=== PATIENT | male | born 1965 | race Caucasian/White ===

== ENCOUNTER 2023-01-17 11:58 | Emergency (ER) | payer OTHER, SELFPAY ==
[2023-01-17] VITALS (10 sets, daily range): BP systolic 148–170; BP diastolic 60–102; PULSE 54–64; RESP 15–26; TEMP 36.8; O2SAT 95–98; BMI 30.5
--- NOTE | 2023-01-17 12:35 | ECG_ITS ---
[facility] Test Date: 2023-01-17 Pat Name: Bernardo Bernal Department: Room: - Gender: Male Instructional Design Manager: : 1965 Requested By: IVAN SERVIN Order Number: [id number] Reading MD: IVAN SERVIN Measurements Intervals Mentcle Rate: 53 P: 49 MN: 198 QRS: 37 QRSD: 92 T: 18 QT: 452 QTc: 435 Interpretive Statements 1100 Sinus rhythm Non-Specific T wave inversion in III 9130 borderline ECG No previous ECG available for comparison Electronically Signed On 01-18-2023 5:29:31 EDT by IVAN SERVIN
--- NOTE | 2023-01-17 12:35 | XR_ITS ---
The [address] [address] Patient Name: BROCK GALVIN MRN: [id number] date: 1965 Sex: M Assigned Patient Location: ER Current Patient Location: ER Accession/Order Number: [id number] Exam Date: 01/17/2023 13:00 Report Date: 01/17/2023 13:55 At the request of: ALCIDES MONDRAGON Procedure: XR chest 1V EXAM: XR chest 1V HISTORY: chest pain, shortness of breath COMPARISON: None. TECHNIQUE: Chest X-ray AP, 1 view FINDINGS: Support devices: None. Lungs/pleura: No consolidation, effusion, or pneumothorax. Heart and mediastinum: Normal contours. Bones: No acute abnormality identified. XR/XR chest 1V Impression: No radiographic evidence of acute cardiopulmonary process. Electronically authenticated by: FERNANDO PULIDO Date: 01/17/2023 13:55
--- NOTE | 2023-01-17 12:36 | ED.GENADUL1 ---
HPI - General Adult General Chief complaint: Chest Pain Stated complaint: SHORTNESS OF BREATH/CHEST PAIN Time Seen by Provider: 01/17/23 12:08 Source: patient Mode of arrival: walk-in Limitations: no limitations History of Present Illness HPI narrative: 2 weeks ago the patient woke from sleep with left anterior chest tightness and difficulty breathing. He had a few more episodes over the next few days and then the sensation of shortness fo breath became more persistent. He still intermittently gets tightness in the chest. No fever, chills, cough or cold symptoms. No recent injury to the chest or neck or back. No GI or symptoms. No prior history of CAD, PE, asthma or COPD. Non-smoker. PMHx = HTN, takes metoprolol and Lisinopril. Called Dr Chand's office and was directed to the ED for evaluation. Related Data Home Medications Medication Instructions Recorded Confirmed lisinopril 20 mg tablet 40 mg PO DAILY 01/17/23 01/17/23 metoprolol tartrate 50 mg tablet 50 mg PO Q12H 01/17/23 01/17/23 Previous Rx's Medication Instructions Recorded aspirin 81 mg chewable tablet 81 mg PO DAILY #30 tabs 01/17/23 Allergies Allergy/AdvReac Type Severity Reaction Status Date / Time No Known Drug Allergies Allergy Verified 01/17/23 12:13 [facility] Social History Smoking status: Never smoker Exam Narrative Exam Narrative: Nurses notes and vital signs reviewed and patient is not hypoxic. afebrile General: Well-appearing and in no apparent distress. Skin: Warm, dry, no pallor noted. Eye: Pupils are equal, round and EOMI. No scleral icterus. Cardiovascular: Regular Rate and Rhythm without murmur, gallop or rub. Respiratory: No accessory muscle use or respiratory distress. Lungs are clear to auscultation, no wheezing, rales or rhonchi Chest Wall: no tenderness, crepitus or subcutaneous emphysema Back: No midline thoracic or lumbar vertebral tenderness. No CVA tenderness Musculoskeletal: normal ROM, no calf or popliteal tenderness, no lower extremity edema/swelling GI: Abdomen is soft, non-distended. Normal bowel sounds. No tenderness to palpation. No rebound, guarding, or rigidity noted. Neurological: A&O x4. No cranial nerve dysfunction observed. No truncal ataxia. Moves all extremities. Sensation intact. Psychiatric: Cooperative and interactive. Normal mood and affect. Constitutional Vital Signs, click to edit/add: Last Vital Signs Temp 98.2 F 01/17/23 12:15 Pulse 61 01/17/23 14:12 Resp 16 01/17/23 14:12 BP 170/98 H 01/17/23 14:12 Pulse Ox 97 01/17/23 14:12 O2 Del Method Room Air 01/17/23 14:12 Course Vital Signs Vital signs: Vital Signs Pulse Rate 56 L 01/17/23 12:13 Respiratory Rate 26 H 01/17/23 12:13 Pulse Oximetry 97 01/17/23 12:13 Temperature 98.2 F 01/17/23 12:15 Pulse Rate 61 01/17/23 14:12 Respiratory Rate 16 01/17/23 14:12 Blood Pressure 170/98 H 01/17/23 14:12 Pulse Oximetry 97 01/17/23 14:12 Oxygen Delivery Method Room Air 01/17/23 14:12 Medical Decision Making MDM Narrative Medical decision making narrative: Patient was placed on cardiac rehab nurse and EKG obtained. Blood drawn and sent for evaluation. CXR obtained. Workup was negative. Patient informed of results and we discussed risk stratification. HEART SCORE = H 1, E 0, A 1, R 1, T 0 = 3 total. Low risk is associated with discharge home and out-patient follow up. I spoke to the patient about his score and called Dr Chand, his PCP, to discuss disposition. Of note the patient's BP increased during ED stay and I ordered him to receive IV Vasotec prior to disposition. Dr Chand agreeable to have the patient discharged home with close out-patient office follow up to schedule further out-patient workup. Patient informed of this and we discussed reasons he would need to return to the ED including worsening chest pain, syncope, worsening shortness of breath. Patient agreeable and expresses understanding. I prescribed baby aspirin daily. Medical Records Medical records reviewed: Yes I reviewed the patient's medical records Lab Data Lab results reviewed: Yes I reviewed the patient's lab results Labs: Lab Results 01/17/23 01/17/23 Range/Units 13:05 13:16 WBC 6.0 (4.0-11.0) 10^3/uL RBC 4.70 (4.70-6.10) 10^6/uL Hgb 15.5 (14.0-18.0) g/dL Hct 45.3 (42.0-54.0) % MCV 96.4 H (80.0-94.0) fL MCH 33.0 (25.9-34.0) pg MCHC 34.2 (29.9-35.2) g/dL RDW 12.8 (11.0-15.0) % Plt Count 185 (150-450) 10^3/uL MPV 11.7 (9.5-13.5) fL Neut % (Auto) 53.0 (43.0-75.0) % Lymph % (Auto) 32.6 (20.5-60.0) % [place] % (Auto) 11.0 (1.7-12.0) % Eos % (Auto) 2.3 (0.9-7.0) % Baso % (Auto) 0.8 (0.2-2.0) % Neut # (Auto) 3.2 (1.4-6.5) 10^3/uL Lymph # (Auto) 2.0 (1.2-3.8) 10^3/uL [place] # (Auto) 0.7 (0.3-0.8) 10^3/uL Eos # (Auto) 0.1 (0.0-0.7) 10^3/uL Baso # (Auto) 0.1 (0.0-0.1) 10^3/uL Abs Immat Gran (auto) 0.02 (0.00-0.03) 10^3/uL Imm/Tot Granulo (auto) 0.3 (0.0-0.5) % D-Dimer 0.33 (<=0.59) mg/L FEU Sodium 140 (136-145) mmol/L Potassium 3.7 (3.5-5.1) mmol/L Chloride 106 (98-107) mmol/L Carbon Dioxide 29.2 (21.0-32.0) mmol/L Anion Gap 8.5 BUN 11.0 (7.0-18.0) mg/dL Creatinine 0.96 (0.70-1.30) mg/dL Est GFR ( Amer) >60 (>=60) Est GFR (Non-Af Amer) >60 (>=60) BUN/Creatinine Ratio 11.5 Glucose 104 (74-106) mg/dL Calcium 8.8 (8.5-10.1) mg/dL Troponin I High Sens 11.5 (4.0-76.1) pg/mL NT-Pro-B Natriuret Pep 297.0 (<=900.0) pg/mL SARS-CoV-2 (PCR) Negative (NEGATIVE) Imaging Data Chest x-ray: Radiologist's impression: Patient Name: BROCK GALVIN MRN: [facility]:[id number] date: 1965 Sex: M Assigned Patient Location: ER Current Patient Location: ER Accession/Order Number: [id number] Exam Date: 01/17/2023 13:00 Report Date: 01/17/2023 13:55 At the request of: ALCIDES MONDRAGON Procedure: XR chest 1V EXAM: XR chest 1V HISTORY: chest pain, shortness of breath COMPARISON: None. TECHNIQUE: Chest X-ray AP, 1 view FINDINGS: Support devices: None. Lungs/pleura: No consolidation, effusion, or pneumothorax. Heart and mediastinum: Normal contours. Bones: No acute abnormality identified. Impression: No radiographic evidence of acute cardiopulmonary process. Electronically authenticated by: FERNANDO PULIDO Date: 01/17/2023 13:55 ECG Data Attestation: ?I have reviewed the pertinent ECG results. Interpretation: EKG interpretation: Emergency Department physician interpretation. Normal sinus rhythm at 53bpm. Normal axis, normal intervals and non-specific t wave changes. No ST segment elevation or depression. Discharge Plan Discharge Chief Complaint: Chest Pain Clinical Impression: Acute dyspnea, Chest pain Patient Disposition: Home, Self-Care Time of Disposition Decision: 14:28 Prescriptions / Home Meds: New aspirin 81 mg tablet,chewable 81 mg PO DAILY Qty: 30 0RF No Action lisinopril 20 mg tablet 40 mg PO DAILY metoprolol tartrate 50 mg tablet 50 mg PO Q12H Instructions: Chest Pain (ED), Dyspnea (ED) Stand Alone Forms: Portal Instructions Referrals: Izaiah Chand MD [Primary Care Provider] - 1 week
[2023-01-17 13:10] LABS: Basophils Absolute Auto 0.1 10^3/uL (0.0-0.1); Basophils Percent Auto 0.8 % (0.2-2.0); Eosinophils Absolute Auto 0.1 10^3/uL (0.0-0.7); Eosinophils Percent Auto 2.3 % (0.9-7.0); Hematocrit 45.3 % (42.0-54.0); Hemoglobin 15.5 g/dL (14.0-18.0); Immature Granulocytes Abs Auto 0.02 10^3/uL (0.00-0.03); Immature Granulocytes Pct Auto 0.3 % (0.0-0.5); Lymphocytes Percent Auto 32.6 % (20.5-60.0); Mean Corpuscular HGB Conc 34.2 g/dL (29.9-35.2); Mean Corpuscular Volume 96.4 fL (80.0-94.0); Mean Platelet Volume 11.7 fL (9.5-13.5); Monocytes Absolute Auto 0.7 10^3/uL (0.3-0.8); Neutrophils Absolute Auto 3.2 10^3/uL (1.4-6.5); Platelet Count 185 10^3/uL (150-450); Red Cell Distribution Width 12.8 % (11.0-15.0)
[2023-01-17 13:24] LABS: D Dimer 0.33 mg/L FEU (<=0.59)
[2023-01-17 13:30] LABS: Anion Gap 8.5; BUN Creatinine Ratio 11.5; Calcium 8.8 mg/dL (8.5-10.1); Carbon Dioxide 29.2 mmol/L (21.0-32.0); Chloride 106 mmol/L (98-107); Estimated GFR (African America >60 (>=60); Estimated GFR (Non-African Ame >60 (>=60); Glucose 104 mg/dL (74-106); Potassium 3.7 mmol/L (3.5-5.1); Sodium 140 mmol/L (136-145); Troponin I High Sensitivity 11.5 pg/mL (4.0-76.1)
[2023-01-17 14:11] LABS: SARS-CoV-2 Ag NEGATIVE (NEGATIVE)
[2023-01-17] MEDS: ENALAPRILAT DIHYDRATE 1.25 MG/ML VIAL IV (14:29)
[2023-01-17 15:51] LABS: SARS-CoV-2 NAA NOT DETECTED (NOT DETECTE)
== END 2023-01-17 14:47 | disposition home or self-care (01) ==
PROVIDERS: Emergency Provider Emergency Medicine; PCP Family Medicine
DX: R07.9 Chest pain, unspecified (principal); R06.00 Dyspnea, unspecified; I10 Essential (primary) hypertension; Z79.899 Other long term (current) drug therapy; Z20.822 Contact with and (suspected) exposure to COVID-19
CPT/HCPCS: 36415; 71045; 80048; 83880; 84484; 85025; 85378; 87635; 87811; 93005; 96374; 99285